=== PATIENT | male | born 1955 | race Caucasian/White ===

== ENCOUNTER → 2024-04-26 07:35 | Outpatient (REF) | payer BC, SELFPAY | LOC: EMG 07:35 | PROVIDERS: ATTENDING PHYSICIAN Nurse Practitioner Family; FAMILY PHYSICIAN Family Medicine | DX: M79.2 Neuralgia and neuritis, unspecified (principal); R20.0 Anesthesia of skin | CPT/HCPCS: 95886; 95910 ==